=== PATIENT | female | born 1930 | race Caucasian/White ===

== ENCOUNTER 2020-08-07 17:36 | Inpatient (IN) ==
[2020-08-07] MEDS ORDERED: LIDOCAINE 1% 20 ML VIAL ONE (17:49)
[2020-08-07] MEDS ORDERED: HEPARIN/NACL 0.9% 2 UNITS/ML 1,000 ML IV ONE (17:49)
[2020-08-07] MEDS ORDERED: NITROGLYCERIN DRIP 50 MG/250 ML BOTTLE IV ONE (17:53)
[2020-08-07] MEDS ORDERED: VERAPAMIL 5 MG/2 ML VIAL ONE (17:53)
[2020-08-07] MEDS ORDERED: MIDAZOLAM 2 MG/2 ML VIAL ONE (18:03)
[2020-08-07] MEDS ORDERED: fentaNYL 100 MCG/2 ML VIAL ONE (18:03)
[2020-08-07] MEDS ORDERED: HYDROmorphone 2 MG/1 ML VIAL ONE (18:08)
[2020-08-07] MEDS ORDERED: ENOXAPARIN 60 MG/0.6 ML SYRINGE ONE (18:08)
[2020-08-07] MEDS ORDERED: ASPIRIN CHEW 81 MG TABLET PO ONE (18:11)
[2020-08-07] MEDS ORDERED: TICAGRELOR 90 MG TABLET ONE (18:14)
[2020-08-07] MEDS ORDERED: BIVALIRUDIN 250 MG VIAL IV ONE (18:16)
[2020-08-07] MEDS ORDERED: MAGNESIUM SULF RIDER 2 GM in PREMIX 1 EACH IV PRN (19:21)
[2020-08-07] MEDS ORDERED: MAGNESIUM SULF RIDER 4 GM in PREMIX 1 EACH IV PRN (19:21)
[2020-08-07] MEDS ORDERED: SODIUM CHLORIDE 0.9% 1,000 ML IV SCH (19:30)
[2020-08-07] MEDS ORDERED: ALBUTEROL 2.5 MG/3 ML NEB RESP TX ONE ×2 (19:40→19:41)
[2020-08-07] MEDS ORDERED: FUROSEMIDE 40 MG/4 ML VIAL IV ONE (19:49)
[2020-08-07] MEDS: TICAGRELOR 90 MG TABLET PO SCH (20:13)
[2020-08-07] MEDS: ROSUVASTATIN 10 MG TABLET PO SCH (20:14)
[2020-08-07] MEDS: ZALEPLON 5 MG CAPSULE PO PRN (20:40)
[2020-08-08] MEDS: ONDANSETRON 4 MG/2 ML VIAL IV PRN ×3 (00:07→21:17)
[2020-08-08] MEDS: HYDROmorphone 2 MG/1 ML VIAL IV PRN ×4 (00:42→21:59)
[2020-08-08] MEDS ORDERED: NITROGLYCERIN SL 0.4 MG TABLET SL PRN (00:50)
[2020-08-08 05:10] LABS: Basophils % 0.1 % (0.0-0.8); Hematocrit 33.1 VOL% (35.7-47.0); Hemoglobin 10.8 GM/DL (12.0-16.0); Immature Granulocytes % 0.2 %; Immature Granulocytes Absolute 0.02 #; Lymphocytes # 0.8 10*3/uL (1.4-4.0); Lymphocytes % 8.6 % (21.3-54.2); Mean Corpuscular HGB Conc 32.6 GM/DL (32-36); Mean Corpuscular Volume 91.9 FL (87-102); Mean Platelet Volume 10.7 FL (9.6-12.0); Monocytes % 5.3 % (1.7-12.7); Neutrophils % 85.8 % (38.7-73.9); Platelet Count 184 T/CUMM (130-400); Red Cell Distribution Width 13.3 % (9.3-17.3); White Blood Count 9.6 T/CUMM (4-12)
[2020-08-08 05:38] LABS: CKMB % 8.5 %; Osmolality,Calculated 269.4 MOS/KG (273-304); Potassium 4.6 MMOL/L (3.5-5.1); Risk Ratio 3.09; VLDL CHOLESTEROL 14.6 MG/DL
[2020-08-08] MEDS: LEVOTHYROXINE 25 MCG TABLET PO SCH ×2 (06:00→07:18)
[2020-08-08 06:42] LABS: Troponin I 5.98 NG/ML (0.00-0.045)
[2020-08-08] MEDS: METOPROLOL SUCCINATE XL 25 MG TABLET PO SCH (09:12)
[2020-08-08] MEDS: ASPIRIN CHEW 81 MG TABLET PO SCH (09:12)
[2020-08-08] MEDS: PANTOPRAZOLE 40 MG TABLET PO SCH (09:13)
[2020-08-08] MEDS: TICAGRELOR 90 MG TABLET PO SCH ×2 (09:13→21:17)
[2020-08-08] MEDS: LOSARTAN 25 MG TABLET PO SCH (09:13)
[2020-08-08] MEDS: ROSUVASTATIN 10 MG TABLET PO SCH (21:17)
[2020-08-08] MEDS: PROMETHAZINE INJ 12.5 MG in SODIUM CHLORIDE 0.9% 50 ML IV PRN (21:58)
[2020-08-09] MEDS: HYDROmorphone 2 MG/1 ML VIAL IV PRN ×3 (03:42→17:14)
[2020-08-09] MEDS ORDERED: ZIPRASIDONE 20 MG/1 ML VIAL IM ONE (03:58)
[2020-08-09 07:13] LABS: Basophils % 0.2 % (0.0-0.8); Eosinophils % 0.1 % (0.00-10.9); Hematocrit 31.5 VOL% (35.7-47.0); Hemoglobin 10.2 GM/DL (12.0-16.0); Immature Granulocytes % 0.3 %; Immature Granulocytes Absolute 0.04 #; Lymphocytes # 1.3 10*3/uL (1.4-4.0); Lymphocytes % 11.2 % (21.3-54.2); Mean Corpuscular HGB Conc 32.4 GM/DL (32-36); Mean Corpuscular Volume 92.4 FL (87-102); Mean Platelet Volume 10.7 FL (9.6-12.0); Monocytes % 5.7 % (1.7-12.7); Neutrophils % 82.5 % (38.7-73.9); Platelet Count 199 T/CUMM (130-400); Red Blood Count 3.41 MC/CUMM (3.8-5.5); Red Cell Distribution Width 13.4 % (9.3-17.3); White Blood Count 11.4 T/CUMM (4-12)
[2020-08-09 07:31] LABS: Albumin 3.2 G/DL (3.4-5.0); Bilirubin,Total 0.5 MG/DL (0.2-1.0); Osmolality,Calculated 274.1 MOS/KG (273-304); Potassium 4.2 MMOL/L (3.5-5.1); Total Protein 6.9 G/DL (6.4-8.3)
[2020-08-09] MEDS: METOPROLOL SUCCINATE XL 25 MG TABLET PO SCH (09:51)
[2020-08-09] MEDS: PANTOPRAZOLE 40 MG TABLET PO SCH (09:51)
[2020-08-09] MEDS: LEVOTHYROXINE 25 MCG TABLET PO SCH (09:52)
[2020-08-09] MEDS: ASPIRIN CHEW 81 MG TABLET PO SCH (09:52)
[2020-08-09] MEDS: TICAGRELOR 90 MG TABLET PO SCH ×2 (09:52→20:37)
[2020-08-09] MEDS: LOSARTAN 25 MG TABLET PO SCH (09:52)
[2020-08-09] MEDS: DOCUSATE SODIUM 100 MG CAPSULE PO PRN (09:52)
[2020-08-09] MEDS ORDERED: ZIPRASIDONE 20 MG/1 ML VIAL IM PRN (11:39)
[2020-08-09] MEDS: KETOROLAC 15 MG/1 ML VIAL IV PRN ×2 (12:40→20:52)
[2020-08-09 14:17] LABS: Amorphous Crystals,Urine Occasional /HPF (Few); Bacteria,Urine Occasional /HPF (Few); Mucus,Urine Occasional /LPF (Occasional); RBC,Urine 10 /HPF (0-4); Squamous Epithelial Cell,Urine Occasional /HPF (0-10); Urine Color Amber (Yellow); WBC,Urine 136 /HPF (0-6)
[2020-08-09 14:18] LABS: Bilirubin,Urine Negative (Negative); Blood, Urine Large mg/dL (Negative); Glucose,Urine (UA) Negative (Negative); Ketones,Urine 25 mg/dL (Negative); Nitrite,Urine Negative (Negative); Protein,Urine 30 MG/DL; Urine Appearance Slightly Cloudy (Clear); Urine Urobilinogen 0.2 EU/DL (0.2-1.0)
[2020-08-09] MEDS: ONDANSETRON 4 MG/2 ML VIAL IV PRN (15:40)
[2020-08-09] MEDS: ROSUVASTATIN 10 MG TABLET PO SCH (20:37)
[2020-08-10] MEDS: HYDROmorphone 2 MG/1 ML VIAL IV PRN (02:32)
[2020-08-10 05:45] LABS: Basophils % 0.1 % (0.0-0.8); Eosinophils % 0.2 % (0.00-10.9); Hematocrit 32.1 VOL% (35.7-47.0); Hemoglobin 10.3 GM/DL (12.0-16.0); Immature Granulocytes % 0.6 %; Immature Granulocytes Absolute 0.07 #; Lymphocytes # 0.8 10*3/uL (1.4-4.0); Lymphocytes % 6.9 % (21.3-54.2); Mean Corpuscular HGB Conc 32.1 GM/DL (32-36); Mean Corpuscular Volume 93.3 FL (87-102); Mean Platelet Volume 10.8 FL (9.6-12.0); Monocytes % 6.4 % (1.7-12.7); Neutrophils % 85.8 % (38.7-73.9); Platelet Count 202 T/CUMM (130-400); Red Blood Count 3.44 MC/CUMM (3.8-5.5); Red Cell Distribution Width 13.5 % (9.3-17.3); White Blood Count 11.8 T/CUMM (4-12)
[2020-08-10 06:21] LABS: Calcium 8.4 MG/DL (8.5-10.1); Osmolality,Calculated 271.4 MOS/KG (273-304); Potassium 4.1 MMOL/L (3.5-5.1)
[2020-08-10] MEDS: ASPIRIN CHEW 81 MG TABLET PO SCH (08:48)
[2020-08-10] MEDS: TICAGRELOR 90 MG TABLET PO SCH ×2 (08:48→20:30)
[2020-08-10] MEDS: PANTOPRAZOLE 40 MG TABLET PO SCH (08:48)
[2020-08-10] MEDS: LOSARTAN 25 MG TABLET PO SCH (08:48)
[2020-08-10] MEDS: LEVOTHYROXINE 25 MCG TABLET PO SCH (08:48)
[2020-08-10] MEDS: METOPROLOL SUCCINATE XL 25 MG TABLET PO SCH (08:48)
[2020-08-10] MEDS: ONDANSETRON 4 MG/2 ML VIAL IV PRN (18:38)
[2020-08-10] MEDS: ROSUVASTATIN 10 MG TABLET PO SCH (20:30)
[2020-08-10] MEDS: PROMETHAZINE INJ 12.5 MG in SODIUM CHLORIDE 0.9% 50 ML IV PRN (21:20)
[2020-08-11] MEDS ORDERED: LIDOCAINE 1% 20 ML VIAL IM ONE (06:30)
[2020-08-11] MEDS ORDERED: methylPREDNISolone ACETATE 40 MG/1 ML VIAL IM ONE (06:30)
[2020-08-11] MEDS: LEVOTHYROXINE 25 MCG TABLET PO SCH (08:22)
[2020-08-11] MEDS: TICAGRELOR 90 MG TABLET PO SCH ×2 (08:22→21:43)
[2020-08-11] MEDS: ASPIRIN CHEW 81 MG TABLET PO SCH (08:22)
[2020-08-11] MEDS: PANTOPRAZOLE 40 MG TABLET PO SCH (08:22)
[2020-08-11] MEDS: METOPROLOL SUCCINATE XL 25 MG TABLET PO SCH (08:22)
[2020-08-11] MEDS: LOSARTAN 25 MG TABLET PO SCH (08:22)
[2020-08-11] MEDS: DOCUSATE SODIUM 100 MG CAPSULE PO PRN (08:22)
[2020-08-11] MEDS: CEFUROXIME 250 MG TABLET PO SCH ×2 (09:31→21:43)
[2020-08-11] MEDS ORDERED: LACTULOSE 20 GM/30 ML UDCUP PO ONE (10:29)
[2020-08-11] MEDS: RANOLAZINE 500 MG TABLET PO SCH ×2 (15:08→21:44)
[2020-08-11] MEDS ORDERED: DONEPEZIL 5 MG TABLET PO SCH (21:00)
[2020-08-11] MEDS: ROSUVASTATIN 10 MG TABLET PO SCH (21:43)
[2020-08-11] MEDS: ZALEPLON 5 MG CAPSULE PO PRN (21:52)
[2020-08-12] MEDS: KETOROLAC 15 MG/1 ML VIAL IV PRN (01:47)
[2020-08-12] MEDS: ONDANSETRON 4 MG/2 ML VIAL IV PRN (01:47)
[2020-08-12] MEDS: PROMETHAZINE INJ 12.5 MG in SODIUM CHLORIDE 0.9% 50 ML IV PRN (03:31)
[2020-08-12] MEDS ORDERED: BISACODYL 10 MG SUPP RECTAL ONE (08:50)
[2020-08-12] MEDS ORDERED: INFLUENZA VIRUS VACCINE 0.5 ML SYRINGE IM ONE (10:15)
[2020-08-12] MEDS: LOSARTAN 25 MG TABLET PO SCH (11:22)
[2020-08-12] MEDS: TICAGRELOR 90 MG TABLET PO SCH (11:22)
[2020-08-12] MEDS: CEFUROXIME 250 MG TABLET PO SCH (11:22)
[2020-08-12] MEDS: METOPROLOL SUCCINATE XL 25 MG TABLET PO SCH (11:23)
[2020-08-12] MEDS: LEVOTHYROXINE 25 MCG TABLET PO SCH (11:23)
[2020-08-12] MEDS: ASPIRIN CHEW 81 MG TABLET PO SCH (11:23)
[2020-08-12] MEDS: PANTOPRAZOLE 40 MG TABLET PO SCH (11:23)
[2020-08-12] MEDS: RANOLAZINE 500 MG TABLET PO SCH (11:23)
[2020-08-12] MEDS: DOCUSATE SODIUM 100 MG CAPSULE PO PRN (11:27)
[2020-08-12 11:47] VITALS: BP 131/52
[2020-08-12] MEDS ORDERED: ACETAMINOPHEN 325 MG TABLET PO ONE (13:03)
[2020-08-12] MEDS ORDERED: ACETAMINOPHEN 325 MG TABLET ONE (13:05)
[2020-08-12] MEDS ORDERED: ISOSORBIDE MONONITRATE 30 MG TABLET PO SCH (14:25)
== END 2020-08-12 13:20 | DRG 246 ==
LOC: N.CL 17:36 → N.ICU 17:44 → N.TELEN 08-10 01:18
PROVIDERS: ADMIT Internal Medicine Cardiovascular Disease; ATTEND Internal Medicine Cardiovascular Disease